=== PATIENT | female | born 1995 | race American Indian/Alaskan Native ===

== ENCOUNTER 2019-01-02 13:45 | Emergency (ER) | payer SELFPAY ==
[2019-01-02 14:17] VITALS: BP 140/103
[2019-01-02] MEDS ORDERED: NORCO 5/325 PO ONE (14:31)
--- NOTE | 2019-01-02 14:32 | Emergency Department Report ---
Blank Doc - Documentation Documentation: has a painful bartholins cyst. no drainage to area.
[2019-01-02] MEDS ORDERED: DILAUDID IM ONE (14:41)
[2019-01-02] MEDS ORDERED: TORADOL IM ONE (14:41)
--- NOTE | 2019-01-02 14:45 | Emergency Department Report ---
Abscess Boil HPI - HPI Duration: 3 Days Location: Other (patient has a left-sided Bartholin's cyst. Patient's had Bartholin's cysts in the past.) Severity: Severe History: Yes Pain (10/10), No Fever, No Purulent Drainage, No Numbness, No Foreign Body, No Previous History, No Insect Bite <OLE ROSS - Last Filed: 01/02/19 14:43> <BECCA VALENZUELA - Last Filed: 01/02/19 15:37> - HPI Chief Complaint: Skin/Abscess/Foreign Body Stated Complaint: CYST Time Seen by Provider: 01/02/19 14:30 Home Medications: Previous Rx's Medication Instructions Recorded Last Taken Type Doxycycline [Vibramycin CAP] 100 mg PO BID 7 Days #14 capsule 01/02/19 Unknown Rx Allergies/Adverse Reactions: Allergies Allergy/AdvReac Type Severity Reaction Status Date / Time No Known Allergies Allergy Unverified 01/02/19 13:47 ED Review of Systems ROS: Stated complaint: CYST Other details as noted in HPI Comment: All other systems reviewed and negative <OLE ROSS - Last Filed: 01/02/19 14:43> ROS: Stated complaint: CYST Other details as noted in HPI Comment: All other systems reviewed and negative <BECCA VALENZUELA - Last Filed: 01/02/19 15:37> ED Past Medical Hx - Past Medical History Previous Medical History?: No - Surgical History Additional Surgical History: C/S - Social History Smoking Status: Never Smoker Substance Use Type: None <OLE ROSS - Last Filed: 01/02/19 14:43> <BECCA VALENZUELA - Last Filed: 01/02/19 15:37> - Medications Home Medications: Home Medications Medication Instructions Recorded Confirmed Last Taken Type Doxycycline [Vibramycin CAP] 100 mg PO BID 7 Days #14 capsule 01/02/19 Unknown Rx ED Abscess Boil Physical Exam - Exam General: Vital signs noted. No distress. Alert and acting appropriately. Exam: Yes Tenderness, Yes Fluctuance, Yes Normal Neurologic Exam, Yes Normal Circulation, No Crepitation, No Heart Murmur <OLE ROSS - Last Filed: 01/02/19 14:43> - Exam General: Vital signs noted. No distress. Alert and acting appropriately. Size: 3 cm Exam: No Surrounding Cellulites/Erythema, No Lymphangitis Exam: 3 cm left sided bartholin cyst present, moderate amount of labia majora edema, no surrounding cellulitis or erythema. Examine performed by Becca Valenzuela PA-C <BECCA VALENZUELA - Last Filed: 01/02/19 15:37> I & D Note - I & D Note I & D Note: Pt was draped and prepped with betadine. 2 cc of lidocaine was used. 11 blade was used to make a 1 cm incision. Copious amount of purulent, foul smelling drainage expressed, 10 cc of saline irrigated, word catheter placed and balloon inflated, sterile dressing applied <BECCA VALENZUELA - Last Filed: 01/02/19 15:37> ED Course Vital Signs 01/02/19 01/02/19 01/02/19 14:12 14:16 14:35 Temperature 98.4 F 98.1 F Pulse Rate 115 H Respiratory 18 18 18 Rate Blood Pressure 140/103 [Left] <OLE ROSS - Last Filed: 01/02/19 14:43> Vital Signs 01/02/19 01/02/19 01/02/19 14:12 14:16 14:35 Temperature 98.4 F 98.1 F Pulse Rate 115 H Respiratory 18 18 18 Rate Blood Pressure 140/103 [Left] 01/02/19 01/02/19 15:21 15:22 Temperature Pulse Rate Respiratory 16 16 Rate Blood Pressure [Left] <BECCA VALENZUELA - Last Filed: 01/02/19 15:37> Critical care attestation.: If time is entered above; I have spent that time in minutes in the direct care of this critically ill patient, excluding procedure time. <OLE ROSS - Last Filed: 01/02/19 14:43> Critical care attestation.: If time is entered above; I have spent that time in minutes in the direct care of this critically ill patient, excluding procedure time. <BECCA VALENZUELA - Last Filed: 01/02/19 15:37> ED Medical Decision Making - Medical Decision Making Pt is a 23 yo female who presents to the ED with c/o a bartholins cyst. I&D performed. Pt is afebrile. Will place pt on doxycycline. Pt will need to return to the ED or be seen by a primary care in the next 2-3 days to have word catheter removed. <BECCA VALENZUELA - Last Filed: 01/02/19 15:37> ED Disposition <OLE ROSS - Last Filed: 01/02/19 14:43> Is pt being admited?: No Does the pt Need Aspirin: No Time of Disposition: 15:35 <BECCA VALENZUELA - Last Filed: 01/02/19 15:37> Clinical Impression: Bartholin cyst, Encounter for incision and drainage procedure Disposition: TO HOME OR SELFCARE Condition: Stable Instructions: Bartholin Cyst (ED), Incision and Drainage (ED) Additional Instructions: Follow up with primary care doctor or return to the ED for word catheter removal in 2-3 days. Take all medication as prescribed. Do not engage in sexual intercourse. Prescriptions: Doxycycline [Vibramycin CAP] 100 mg PO BID 7 Days #14 capsule Referrals: [facility] [Other] - 2-3 Days Print Language: VENEZUELAN
== END 2019-01-02 15:54 | disposition home or self-care (01) ==
LOC: ED 13:45
DX: N75.0 Cyst of Bartholin's gland (principal)
CPT/HCPCS: 56420; 96372; 99282; J1885; J1170